=== PATIENT | male | born 1990 | race African-American/Black ===

== ENCOUNTER 2018-07-15 07:58 | Emergency (ER) | payer MEDICAID ==
[~2018-07-15] VITALS: Ht 180.3 cm; Wt 93.2 kg
[2018-07-15 08:04] VITALS: Ht 180.3 cm; Wt 93.2 kg
[2018-07-15] MEDS ORDERED: AMOXICILLIN500 M1 PO (08:16)
[2018-07-15] MEDS ORDERED: STERAPRED DS 1210 MG PO (08:16)
[2018-07-15 08:46] LABS: BASOPHILS 0.5 % (0-2); EOSINOPHILS 4.5 % (0-7); HEMATOCRIT 44.3 % (42.0-54.0); HEMOGLOBIN 15.6 g/dL (13.5-17.5); IMMATURE GRANULOCYTES 0.3 % (0-5); LYMPHOCYTES 35.9 % (15-50); MCH 31.6 pg (26.0-34.0); MCHC 35.2 g/dL (31.0-37.0); MCV 89.9 fL (80.0-100.0); MEAN PLATELET VOLUME 9.1 fL (7.4-10.4); MONOCYTES 8.9 % (2-11); NEUTROPHILS 49.9 % (40-80); RBC 4.93 10x6/uL (4.20-6.10); RDW 13.2 % (11.5-14.5); WBC 10.2 10x3/uL (4.8-10.8)
[2018-07-15 08:55] LABS: PLATELET COUNT 354 10x3/uL (130-400)
[2018-07-15 09:05] LABS: ALBUMIN 3.6 g/dL (3.4-5.0); ALKALINE PHOSPHATASE 57 U/L (46-116); ALT (SGPT) 30 U/L (10-68); CALC OSMOLALITY 278 mosm/kg (275-300); CALCIUM 9.2 mg/dL (8.5-10.1); CARBON DIOXIDE 28.4 mmol/L (21.0-32.0); CHLORIDE - SERUM 104 mmol/L (98-107); CREATININE - SERUM 0.9 mg/dL (0.6-1.3); GLUCOSE 109 mg/dL (74-106); POTASSIUM - SERUM 3.6 mmol/L (3.5-5.1); PROTEIN - SERUM 7.1 g/dL (6.4-8.2); SODIUM 139 mmol/L (136-145); UREA NITROGEN 12 mg/dL (7-18); eGFR NON AFRICAN AMERICAN > 90 mL/min (90-120)
[2018-07-15 09:12] LABS: C-REACTIVE PROTEIN 0.3 mg/dL (0.0-0.9); CKMB 1.1 U/L (0.0-3.6); CREATINE KINASE 211 UL (21-232)
[2018-07-15 09:13] LABS: TROPONIN-I < 0.017 ng/mL (0.000-0.060)
[2018-07-15] MEDS ORDERED: ZPAK PO (09:30)
[2018-07-15] MEDS ORDERED: NAPROSYN500 MG PO (09:30)
[2018-07-15 09:49] VITALS: BP 130/86
== END 2018-07-15 09:48 | disposition home or self-care (01) ==
LOC: D.ER 07:58
PROVIDERS: Family Medicine
DX: J40 Bronchitis, not specified as acute or chronic (principal); R09.1 Pleurisy; F17.200 Nicotine dependence, unspecified, uncomplicated